=== PATIENT | female | born 1995 | race Caucasian/White ===

== ENCOUNTER 2017-03-07 00:20 | Inpatient (IN) | payer BC ==
[2017-03-07] MEDS ORDERED: TERBUTALINE 1 MG/ML VIAL SQ PRN (00:55)
[2017-03-07] MEDS ORDERED: LIDOCAINE 1% (PF) 10 MG/ML (30 ML SDV) SQ PRN (00:55)
[2017-03-07] MEDS ORDERED: METHYLERGONOVINE 0.2 MG/ML 1 ML AMP IM PRN (00:55)
[2017-03-07] MEDS ORDERED: CARBOPROST TROMETHAMINE 250 MCG/ML 1 ML AMP IM PRN (00:55)
[2017-03-07] MEDS ORDERED: OXYTOCIN 10 UNIT/ML 1 ML VIAL IM PRN (00:55)
[2017-03-07] MEDS ORDERED: OXYTOCIN 20 UNITS/1000 ML NS 1,000 ML IV SCH ×2 (01:00→19:45)
[2017-03-07] MEDS: LACTATED RINGERS 1,000 ML IV SCH ×3 (01:38→13:17)
[2017-03-07 01:47] LABS: Basophils % (A) 0 %; CH 26.9; CHCM 32.4; Eosinophils # (A) 0.1 k/uL (0-0.7); Eosinophils % (A) 2 %; HCT 33.2 % (34.0-46.0); HDW 2.85; HGB 10.8 gm/dL (11.4-16.0); Luc # (Auto) 0.21; Luc % (Auto) 3; Lymphocytes # (A) 2.1 k/uL (1.0-4.8); Lymphocytes % (A) 26 %; MCH 27.1 pg (25.0-35.0); MCHC 32.5 g/dL (31.0-37.0); MCV 83.4 fL (80.0-100.0); Monocytes # (A) 0.5 k/uL (0-1.0); Monocytes % (A) 6 %; Neutrophils # (A) 5.2 k/uL (1.3-7.7); Neutrophils % (A) 63 %; RBC 3.98 m/uL (3.80-5.40); RDW 15.4 % (11.5-15.5); WBC 8.2 k/uL (3.8-10.6); WBC (Perox) 8.08
[2017-03-07] MEDS: BUTORPHANOL 1 MG/ML 1 ML VIAL IV PRN ×3 (04:44→10:10)
--- NOTE | 2017-03-07 10:47 | P.HPOB ---
History of Present Illness H&P Date: 03/07/17 Chief Complaint: spontaneous rupture of membranes at 39-4/7 weeks' this is a 21-year-old 1 para 0 woman with an estimated due date of 03/10 who had spontaneous rupture of membranes at approximately 2230 on 2016. Upon evaluation in labor and delivery triage rupture of membranes was confirmed. She was 1 cm dilated and not actively kaushal. She is therefore admitted. has been uncomplicated. She is known rubella non -immune. Laboratory data: Blood type AB+, antibody screen negative, rubella non-immune, VDRL nonreactive, HIV negative, hepatitis B surface antigen negative, diabetes screening negative, group B strep negative. 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.) , Marijuana (no reported use 1 year) - Past Family History Father History Unknown: Yes Family Medical History: Diabetes Mellitus Medications and Allergies Home Medications Medication Instructions Recorded Confirmed Type Pnv,Calcium 72/Iron/Folic Acid 1 tab PO DAILY 03/07/17 03/07/17 History [ Plus Tablet] Allergies Allergy/AdvReac Type Severity Reaction Status Date / Time No Known Allergies Allergy Verified 03/07/17 00:31 Exam - Vital Signs Vital signs: Vital Signs Temp Pulse Resp BP 03/07/17 00:54 97.9 F 80 18 135/93 03/07/17 00:52 97.9 F 80 18 135/94 Intake and Output 03/06/17 03/07/17 03/07/17 22:59 06:59 14:59 Other: # Voids 3 Weight 79.832 kg targeted physical exam is performed. On admission the patient is 1 cm dilated, 50% effaced and the vertex in the -3 station. Amnio sure was positive for rupture of membranes. She is not regularly kaushal on admission and heart tones are reactive and reassuring. Results Result Diagrams: 03/07/17 01:35 Abnormal Lab Results - Last 24 Hours (Table) 03/07/17 Range/Units 01:35 Hgb 10.8 L (11.4-16.0) gm/dL Hct 33.2 L (34.0-46.0) % Assessment and Plan (1) 39 weeks gestation of Current Visit: Yes Status: Acute Code(s): Z3A.39 - 39 WEEKS GESTATION OF SNOMED Code(s): 27715177 (2) Rubella non-immune status, antepartum Current Visit: Yes Status: Acute Code(s): O99.89 - OTH DISEASES AND CONDITIONS COMPL PREG/CHLDBRTH; Z28.3 - UNDERIMMUNIZATION STATUS SNOMED Code(s ): 146894714 (3) Premature rupture of membranes Current Visit: Yes Status: Acute Code(s): O42.90 - GUSTAVO ROM, 7TH0 BETW RUPT & ONST LABR, UNSP WEEKS OF GEST SNOMED Code(s): 53880986 Plan: this is a 21-year-old 1 para 0 woman at 39-4/7 weeks gestation who is admitted with premature rupture of membranes. Following admission she is augmented with Pitocin. She is group B strep negative and Rh+. She may have an epidural anesthetic upon request in active labor. Prophylactic antibiotics will be initiated for prolonged rupture of membranes as indicated. Anticipate normal spontaneous vaginal delivery.
[2017-03-07] MEDS ORDERED: PENICILLIN G POTASSIUM 5,000,000 UNIT in DEXTROSE 5% IN WATER 100 ML IVPB STA ×2 (10:49)
[2017-03-07] MEDS ORDERED: SODIUM CHLORIDE 0.9% 100 ML BAG ONE (12:46)
[2017-03-07] MEDS ORDERED: BUPIVACAINE (PF) 0.25% 30 ML VIAL ONE (12:46)
[2017-03-07] MEDS ORDERED: fentaNYL (PF) 50 MCG/ML 5 ML AMP ONE (12:46)
[2017-03-07] MEDS ORDERED: BUPIVACAINE (PF) 0.25% 25 ML, fentaNYL (PF) 200 MCG in SODIUM CHLORIDE 0.9% 71 ML EPIDURAL ONE (14:25)
[2017-03-07] MEDS: PENICILLIN G POTASSIUM 2,500,000 UNIT in DEXTROSE 5% IN WATER 100 ML IVPB SCH ×4 (15:01→20:39)
[2017-03-07] MEDS ORDERED: WITCH HAZEL 1 EACH MED..PAD TOPICAL PRN (19:44)
[2017-03-07] MEDS ORDERED: SIMETHICONE 80 MG CHEWABLE PO PRN (19:44)
[2017-03-07] MEDS ORDERED: diphenhydrAMINE 50 MG/ML 1 ML VIAL IVP PRN ×2 (19:44)
[2017-03-07] MEDS ORDERED: diphenhydrAMINE 50 MG CAP PO PRN (19:44)
[2017-03-07] MEDS ORDERED: ZOLPIDEM 5 MG TAB PO PRN (19:44)
[2017-03-07] MEDS ORDERED: LANOLIN CREAM 5 GM TUBE TOPICAL PRN (19:44)
[2017-03-07] MEDS ORDERED: Acetaminophen-Codeine 300-30mg TAB PO PRN (19:44)
[2017-03-07] MEDS ORDERED: BENZOCAINE/MENTHOL SPRAY 1 GM/SPRAY AEROSOL TOPICAL PRN (19:44)
[2017-03-07] MEDS ORDERED: HYDROCORTISONE 2.5% RECTAL CREAM 30 GM TUBE RECTAL PRN (19:44)
[2017-03-07] MEDS ORDERED: diphenhydrAMINE 25 MG CAP PO PRN (19:44)
--- NOTE | 2017-03-07 19:44 | P.PROBDLV ---
Vaginal Delivery Note - . Vaginal Delivery Note: findings: Male infant in the right occiput anterior position with Apgars of 9 at 1 minute and 9 at 5 minutes weighing 8 lbs. 5 oz., 3770 g. Second-degree midline episiotomy. Intact, three-vessel cord placenta. EBL 150 mL's. Infant is noted to have a double first digit on the right hand. Delivery summary: This is a 21-year-old 1 para 0 woman who presented with spontaneous rupture of membranes at approximately 2230 on 03/06/2017. She was not in active labor and was 1 cm dilated on admission. Pitocin induction of labor was initiated. She had a very long latent phase of labor. She went into active labor and did receive an epidural anesthetic. She reached complete cervical dilation by 1840 on 03/07/2017. She commenced pushing with excellent maternal effort. When she had pushed to she was repositioned, prepped and draped in the modified Mark position. With additional maternal effort the head on delivered over a small midline episiotomy. The anterior shoulder was delivered in the Mark position. The rest the easily delivered onto the field. The nose and mouth were bulb suctioned. The infant was placed on the maternal abdomen. Nose and mouth were further bulb suctioned and the cord was clamped and cut. Apgars were 9 at 1 minute and 9 at 5 minutes. Shallow second-degree perineal laceration was repaired with 3-0 Vicryl suture in the usual fashion. An intact, three-vessel cord placenta was expressed after an approximately 11 minute third stage of labor. The uterus was massaged and on noted to be firm at the level of the umbilicus. The rest of the vagina and cervix were inspected and no further lacerations were noted. All counts were correct. Both mother and were doing well post delivery in the room.
[2017-03-07] MEDS: SENNOSIDES-DOCUSATE SODIUM 1 EACH TAB PO SCH (20:39)
[2017-03-07] MEDS: IBUPROFEN 600 MG TAB PO PRN (20:39)
[2017-03-07 23:20] VITALS: RESP 16
[2017-03-08] MEDS: IBUPROFEN 600 MG TAB PO PRN ×3 (03:36→20:21)
--- NOTE | 2017-03-08 10:25 | P.PNOBGVD ---
Subjective - Subjective Principal diagnosis: day #1 Interval history: Recovering well. Moderate lochia. Breast-feeding successfully. Patient reports: Reports appetite normal, Reports voiding normally, Reports pain well controlled, Reports ambulating normally : doing well (Monitor 48 hours for prolonged rupture of membranes. Labs have been normal thus far.), nursing well Objective - Latest Vital Signs Latest vital signs: Vital Signs Temp Pulse Resp BP 03/08/17 03:38 98.1 F 75 16 135/68 03/07/17 23:18 98.2 F 83 16 117/68 03/07/17 21:21 99.7 F H 93 18 134/67 03/07/17 21:06 94 18 122/55 03/07/17 20:37 100.7 F H 91 18 124/57 03/07/17 20:22 99.8 F H 95 18 134/61 03/07/17 20:07 100.4 F H 95 18 131/68 03/07/17 19:52 101 F H 99 18 142/77 03/07/17 19:37 101.5 F H 148 H 18 146/79 Intake and Output 03/07/17 03/08/17 03/08/17 22:59 06:59 14:59 Intake Total 2655.3 500 Output Total 150 Balance 2505.3 500 Intake: IV 1000 Invasive Line 1 1000 Intake, IV Titration 1255.3 Amount Bupivacaine (Pf) 0.25% 25 100 ml fentaNYL (PF) 200 mcg In Sodium Chloride 0.9% 71 ml @ Titrate EPIDURAL ONCE ONE Rx#:[id number] Oxytocin 20 Units/1000 ml 55.3 Ns 1,000 ml @ 1 MILLIUNIT/MIN 3 mls/hr IV .Q24H ALEJANDRA Rx#:[id number] Oxytocin 20 Units/1000 ml 1000 Ns 1,000 ml @ Per Protocol IV .Q0M ALEJANDRA Rx#: [id number] Penicillin G Potassium 2, 100 500,000 unit In Dextrose 5% in Water 100 ml @ 100 mls/hr IVPB Q4H ALEJANDRA Rx#: [id number] Oral 400 500 Output: Estimated Blood Loss 150 Other: # Voids 1 2 - Exam Extremities: Present: normal Abdomen: Present: normal appearance, soft Uterus: Present: normal, firm Assessment and Plan (1) 39 weeks gestation of Current Visit: Yes Status: Acute Code(s): Z3A.39 - 39 WEEKS GESTATION OF SNOMED Code(s): 13455815 (2) Rubella non-immune status, antepartum Current Visit: Yes Status: Acute Code(s): O99.89 - OTH DISEASES AND CONDITIONS COMPL PREG/CHLDBRTH; Z28.3 - UNDERIMMUNIZATION STATUS SNOMED Code(s ): 113524879 (3) Premature rupture of membranes Current Visit: Yes Status: Acute Code(s): O42.90 - GUSTAVO ROM, 7TH0 BETW RUPT & ONST LABR, UNSP WEEKS OF GEST SNOMED Code(s): 49165681 (4) Perineal laceration with delivery, second degree Current Visit: Yes Status: Acute Code(s): O70.1 - SECOND DEGREE PERINEAL LACERATION DURING DELIVERY SNOMED Code(s): 4004629 (5) Status post normal vaginal delivery Current Visit: Yes Status: Acute Code(s): CMR2618 - SNOMED Code(s): 361933478 Plan: day #1 status post normal spontaneous vaginal delivery. Recovering well. Anticipate discharge home tomorrow.
[2017-03-08] MEDS: SENNOSIDES-DOCUSATE SODIUM 1 EACH TAB PO SCH ×2 (11:02→20:21)
[2017-03-08] MEDS: ACETAMINOPHEN TAB 325 MG TAB PO PRN (15:02)
[2017-03-09] MEDS: SENNOSIDES-DOCUSATE SODIUM 1 EACH TAB PO SCH (08:45)
[2017-03-09] MEDS: IBUPROFEN 600 MG TAB PO PRN (08:46)
[2017-03-09 09:12] VITALS: BP 138/91; PULSE 86; TEMP 97.8
--- NOTE | 2017-03-09 09:28 | P.DS ---
Providers Date of admission: 03/07/17 00:34 Expected date of discharge: 03/09/17 Attending physician: Conner Yu Primary care physician: Stated None - Discharge Diagnosis(es) (1) 39 weeks gestation of Current Visit: Yes Status: Acute (2) Status post normal vaginal delivery Current Visit: Yes Status: Acute Hospital Course: The patient is a 21-year-old 1 para 0 admitted at 39-4/7 weeks by good dating parameters. She is admitted with documented spontaneous rupture of membranes though not in labor. Her has been uncomplicated though she is rubella nonimmune. On labor and delivery, she had Pitocin augmentation started. She made progress eventually to the active phase of labor where an epidural catheter was placed for analgesia. She continued to progress to complete and then pushed to a normal spontaneous vaginal delivery of a viable 8 lbs. 5 oz. baby boy with Apgars of 9 at 1 minute and 9 at 5 minutes. Her course was unremarkable though the to the was held as he failed to pass a cardiac screen on the initial attempt. She was deemed stable for discharge on day #2 was discharged home to follow-up in the office in 6 weeks routinely. Discharge instructions included calling for any significantly increased bleeding or foul-smelling lochia, significantly increased fever or abdominal pain, perineal complaints, breast complaints, or anything else that concerned her. She was additionally instructed to have nothing in the vagina for at least 6 weeks time to include intercourse. She understood her instructions and agrees to follow up as noted above. Discharge medications included sqvq-dei-aibheja analgesic pain medications as well as continued vitamins as she has opted to breast-feed. She was provided a prescription for a dual electric breast pump. Maternal blood type is AB+ and rubella status is nonimmune. She therefore was to receive the MMR vaccination prior to discharge. Procedures: #1. Pitocin augmentation #2. Epidural analgesia #3. Normal spontaneous vaginal delivery #4. Repair of midline episiotomy. Patient Condition at Discharge: Good Plan - Discharge Summary New Discharge Prescriptions: No Action Pnv,Calcium 72/Iron/Folic Acid [ Plus Tablet] 1 tab PO DAILY Discharge Medication List Pnv,Calcium 72/Iron/Folic Acid [ Plus Tablet] 1 tab PO DAILY 03/07/17 [ History] Follow up Appointment(s)/Referral(s): Conner Yu MD [STAFF PHYSICIAN] - 6 Weeks Discharge Disposition: HOME SELF-CARE
[2017-03-09] MEDS: ACETAMINOPHEN TAB 325 MG TAB PO PRN (12:27)
== END 2017-03-09 17:30 | disposition home or self-care (01) | DRG 775 ==
LOC: FBPOP 00:20 → 4FBP 00:34
PROVIDERS: ADMIT Obstetrics & Gynecology; ATTEND Obstetrics & Gynecology
PROC: 0KQM0ZZ Repair Perineum Muscle, Open Approach (ICD-10-PCS; principal; 2017-03-07)
PROC: 10E0XZZ Delivery of Products of Conception, External Approach (ICD-10-PCS; principal; 2017-03-07)
PROC: 3E0R3BZ Introduction of Anesthetic Agent into Spinal Canal, Percutaneous Approach (ICD-10-PCS; principal; 2017-03-07)
PROC: 00HU33Z Insertion of Infusion Device into Spinal Canal, Percutaneous Approach (ICD-10-PCS; principal; 2017-03-07)
PROC: 0W8NXZZ Division of Female Perineum, External Approach (ICD-10-PCS; principal; 2017-03-07)
DX: O42.92 Full-term premature rupture of membranes, unspecified as to length of time between rupture and onset of labor (principal); O70.1 Second degree perineal laceration during delivery; Z37.0 Single live birth; Z3A.39 39 weeks gestation of pregnancy; Z87.891 Personal history of nicotine dependence
CPT/HCPCS: 59025; 85025; 88307; 99213

== ENCOUNTER 2017-05-20 11:09 | Day surgery (SDC) | payer BC ==
[2017-05-18 12:39] VITALS: BMI 25.0
[~2017-05-20 11:09] MED LIST: DEXAMETHASONE SOD PHOSPHATE 4 MG/ML 1 ML VIAL IV ONE; FAMOTIDINE 20 MG/2 ML VIAL IV ONE; LACTATED RINGERS 1,000 ML IV SCH; LIDOCAINE 1% 20 ML VIAL (10MG/ML) FOR IV START INTRADERMA PRN; ONDANSETRON 4 MG/2 ML VIAL IVP ONE; ceFAZolin 1,000 MG in DEXTROSE/WATER 1 50ML.BAG IV ONE; fentaNYL (PF) 50 MCG/ML 2 ML AMP IV PRN
[2017-05-20] MEDS: OXYMETAZOLINE 0.05% NASL SPRAY 1 SPRAY BOTTLE NASAL ONE ×5 (12:25→12:50)
[2017-05-20] MEDS ORDERED: MIDAZOLAM 2 MG/2 ML VIAL ONE (13:08)
[2017-05-20] MEDS ORDERED: DEXAMETHASONE SOD PHOS (MDV) 100 MG/10 ML VIAL ONE (13:08)
[2017-05-20] MEDS ORDERED: SUCCINYLCHOLINE CHLORIDE 100 MG/5 ML SYR IV ONE (13:08)
[2017-05-20] MEDS ORDERED: fentaNYL (PF) 50 MCG/ML 2 ML AMP ONE (13:08)
[2017-05-20] MEDS ORDERED: LIDOCAINE 1% INJ 10MG/ML (20 ML MDV) ONE (13:08)
[2017-05-20] MEDS ORDERED: PROPOFOL 10 MG/ML 20 ML VIAL IV ONE (13:08)
[2017-05-20] MEDS ORDERED: BUPIVACAINE-EPI 0.5%-1:200,000 10 ML VIAL SQ ONE ×2 (13:22)
[2017-05-20] MEDS ORDERED: BACITRACIN 500 UNIT/GM OINT 28.4 GM TUBE TOPICAL ONE (13:41)
--- NOTE | 2017-05-20 13:59 | P.OP ---
Date of Procedure: 05/20/17 Preoperative Diagnosis: Deviated nasal septum Nasal fracture with posttraumatic nasal deformity Postoperative Diagnosis: Same Procedure(s) Performed: Septoplasty Closed nasal reduction Anesthesia: AALIYAH Surgeon: Krishna Chew Estimated Blood Loss (ml): 5 Pathology: other (Nasal septal bone and cartilage) Condition: stable Disposition: PACU Indications for Procedure: This is a 21-year-old white female who sustained nasal injury approximately 6 weeks ago and has noted a nasal deformity as well as difficulties with nasal airway obstruction particularly on the right Operative Findings: Nasal dorsum deviated to the left and the nasal septum deviated to the right obstructing approximate 70% of the nasal airway Description of Procedure: The patient was brought in the operative suite and placed in a supine position. The patient underwent induction of general anesthesia with oral endotracheal intubation without difficulty. The patient was prepped and draped in usual aseptic fashion. 1/2% lidocaine with 1-100,000 epinephrine was infused submucosally both sides of the nasal septum. This was left to work for 7 minutes vasoconstrictive effect. A left hemitransfixion incision was made with the mucoperichondrial and mucoperiosteal flap on left elevated. Bony cartilaginous junction was disarticulated and the mucoperiosteal flap on the right was elevated. Bony nasal septal deformities were removed with Les forceps and an inferior cartilaginous strip was removed leaving a full 1.5 cm caudal strut. Checking intranasally this corrected the nasoseptal deformities and the hemitransfixion incision was closed with a running 4-0 chromic suture. Bilateral [place] airway splints coated bacitracin ointment were placed in nasal cavities and sutured trans-septally with a 4-0 nylon suture. The external nasal deformity was then able to be reduced manually particularly reducing the left nasal fracture. This overall appeared to be stable and the nasal dorsum was straight. Steri-Strips and a thermoplastic external nasal splint was placed. The patient was then allowed to emerge from general anesthesia having tolerated procedure well was extubated in the operating suite and transferred to postop recovery area in satisfactory condition.
[2017-05-20 14:10] VITALS: TEMP 97.3
[2017-05-20] MEDS ORDERED: ACETAMINOPHEN TAB 325 MG TAB PO ONE (15:15)
[2017-05-20 15:38] VITALS: BP 137/82; PULSE 70; RESP 18
== END 2017-05-20 15:51 | disposition home or self-care (01) ==
LOC: OR 11:09
PROVIDERS: ATTEND Otolaryngology
DX: J34.2 Deviated nasal septum (principal); S02.2XXA Fracture of nasal bones, initial encounter for closed fracture; V86.99XA Unspecified occupant of other special all-terrain or other off-road motor vehicle injured in nontraffic accident, initial encounter; Z87.891 Personal history of nicotine dependence
CPT/HCPCS: 81025; 88300; 30520; 21320; J2250; J2405; J2001; J3010; J0690; J1100; J0330; J2704

== ENCOUNTER 2018-03-16 10:39 | Emergency (ER) | payer BC ==
[2018-03-16] MEDS ORDERED: SODIUM CHLORIDE 0.9% 1,000 ML IV STA (11:00)
[2018-03-16] MEDS ORDERED: ONDANSETRON 4 MG/2 ML VIAL IVP STA (11:00)
[2018-03-16] MEDS ORDERED: MAG HYDROX/AL HYDROX/SIMETH 30 ML, HYOSCYAMINE ELIXIR 10 ML, CIMETIDINE HCL 300 MG, LID... PO STA ×4 (11:00)
[2018-03-16] MEDS ORDERED: FAMOTIDINE 20 MG/2 ML VIAL IV STA (11:00)
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
[2018-03-16 11:49] LABS: Appearance,Urine Clear (Clear); Bacteria,Urine Rare /hpf; Basophils % (A) 0 %; Bilirubin,Urine Negative (Negative); Blood,Urine Trace (Negative); Color,Urine Yellow; Eosinophils # (A) 0.2 k/uL (0-0.7); Eosinophils % (A) 3 %; Glucose,Urine (UA) Negative (Negative); HCT 40.7 % (34.0-46.0); HGB 13.5 gm/dL (11.4-16.0); Ketones,Urine Trace (Negative); Leukocyte Esterase,Urine Negative (Negative); Lymphocytes # (A) 1.2 k/uL (1.0-4.8); Lymphocytes % (A) 21 %; MCH 28.9 pg (25.0-35.0); MCHC 33.1 g/dL (31.0-37.0); MCV 87.4 fL (80.0-100.0); Mean Platelet Volume 6.8; Monocytes # (A) 0.3 k/uL (0-1.0); Monocytes % (A) 5 %; Mucus,Urine Rare /hpf; Neutrophils # (A) 3.9 k/uL (1.3-7.7); Neutrophils % (A) 68 %; Nitrite,Urine Negative (Negative); PH, Urine 5.5 (5.0-8.0); Platelet Count 227 k/uL (150-450); Protein,Urine Negative (Negative); RBC 4.65 m/uL (3.80-5.40); RBC,Urine 1 /hpf (0-5); RDW 12.8 % (11.5-15.5); Specific Gravity,Urine 1.014 (1.001-1.035); Squamous Epithelial Cell,Urine 1 /hpf (0-4); Urobilinogen,Urine <2.0 mg/dL (<2.0); WBC 5.7 k/uL (3.8-10.6)
[2018-03-16 11:54] LABS: ALT 40 U/L (9-52); AST 48 U/L (14-36); Albumin 4.2 g/dL (3.5-5.0); Alkaline Phosphatase 55 U/L (38-126); Amylase 38 U/L (30-110); Anion Gap 9 mmol/L; Blood Urea Nitrogen 13 mg/dL (7-17); Calcium 9.7 mg/dL (8.4-10.2); Carbon Dioxide 22 mmol/L (22-30); Chloride 107 mmol/L (98-107); Glucose 106 mg/dL (74-99); Lipase 35 U/L (23-300); Potassium 4.3 mmol/L (3.5-5.1); Sodium 138 mmol/L (137-145); Total Bilirubin 0.7 mg/dL (0.2-1.3); Total Protein 7.1 g/dL (6.3-8.2)
[2018-03-16 12:29] VITALS: BP 116/67; PULSE 18; RESP 56; TEMP 98.7
== END 2018-03-16 12:26 | disposition home or self-care (01) ==
LOC: EC 10:39
DX: K29.70 Gastritis, unspecified, without bleeding (principal); Z87.891 Personal history of nicotine dependence
CPT/HCPCS: 36415; 80053; 82150; 83690; 85025; 81001; 99284; 96374; 96375; 96361; J2405